=== PATIENT | female | born 1980 | race Caucasian/White ===

== ENCOUNTER 2018-10-04 09:01 | Inpatient (IN) ==
[2018-10-04] MEDS ORDERED: D5W 1,000 ML IV PRN (15:06)
[2018-10-04] MEDS ORDERED: DULCOLAX PR PRN (15:06)
[2018-10-04] MEDS ORDERED: DESYREL PO PRN (15:06)
[2018-10-04] MEDS ORDERED: PHENOBARBITAL IV PRN (15:06)
[2018-10-04] MEDS ORDERED: TYLENOL PO PRN (15:06)
[2018-10-04] MEDS ORDERED: MAALOX PLUS LIQUID PO PRN (15:06)
[2018-10-04] MEDS ORDERED: ZOFRAN IV PRN (15:06)
[2018-10-04] MEDS ORDERED: SENOKOT PO PRN (15:06)
[2018-10-04] MEDS ORDERED: MOTRIN PO PRN (15:06)
[2018-10-04] MEDS ORDERED: SEROQUEL PO PRN (15:06)
[2018-10-04] MEDS ORDERED: IMODIUM PO PRN ×2 (15:06)
[2018-10-04] MEDS ORDERED: ZOFRAN IM PRN (15:06)
[2018-10-04] MEDS ORDERED: TUBERSOL ID ONE (15:06)
[2018-10-04] MEDS ORDERED: ZOFRAN ODT PO PRN (15:06)
[2018-10-04 15:35] LABS: HEMATOCRIT 38.1 % (37.0-47.0); HEMOGLOBIN 12.9 g/dL (12.0-16.0); MCH 31.1 PG (27-31); MCHC 33.9 g/dL (33-37); MCV 91.8 FL (81-99); MPV 8.1 FL (7.4-10.4); RBC 4.15 XMIL (4.2-5.4); RDW 13.5 % (11.5-14.5); WBC 7.58 X1000 (4.8-10.8)
[2018-10-04 15:48] LABS: AGAP 12; ALBUMIN 3.8 g/dL (3.5-5.0); ALKALINE PHOSPHATASE 84 U/L (32-104); AMYLASE 73 U/L (20-200); BUN 14 mg/dL (8-22); CALCIUM 8.9 mg/dL (8.8-10.2); CHLORIDE 104 mmol/L (98-107); COSMO 277; CREATININE 0.6 mg/dL (0.5-0.9); ESTIMATED GFR > 60; GLUCOSE 86 mg/dL (70-104); GOT 21 U/L (10-30); GPT 21 U/L (10-36); LIPASE 37 U/L (13-60); POTASSIUM 4.3 mmol/L (3.5-5.1); SODIUM 139 mmol/L (136-145); TCO2 23 mmol/L (25-35); TOTAL PROTEIN 7.4 g/dL (6.3-8.3)
[2018-10-04] MEDS ORDERED: BENTYL PO PRN (18:24)
[2018-10-04] MEDS ORDERED: ATARAX PO PRN (18:24)
[2018-10-04] MEDS ORDERED: LIBRIUM PO PRN (18:24)
[2018-10-04] MEDS ORDERED: SINEMET 25/100 PO PRN (18:24)
[2018-10-04] MEDS: NICODERM PATCH TD PRN (18:36)
[2018-10-04] MEDS: NICOTINE GUM BUCCAL PRN (18:36)
[2018-10-04] MEDS: LIBRIUM PO SCH (18:36)
[2018-10-04 21:17] LABS: URINE SOURCE CLEAN CATCH
[2018-10-04 21:20] LABS: BILIRUBIN URINE NEGATIVE (NEGATIVE); BLOOD URINE NEGATIVE (NEGATIVE); CLARITY SL. CLOUDY (CLEAR); COLOR YELLOW; GLUCOSE URINE NEGATIVE (NEGATIVE); KETONE URINE NEGATIVE (NEGATIVE); LEUKOCYTES URINE TRACE (NEGATIVE); NITRITE URINE NEGATIVE (NEGATIVE); PROTEIN URINE NEGATIVE (NEGATIVE); UR AMPHETAMINES QUAL PRESUMPTIVE POSITIVE (NONE DETECT); UR BARBITUATES QUAL NONE DETECTED (NONE DETECT); UR BENZODIAZEPIN QUAL PRESUMPTIVE POSITIVE (NONE DETECT); UR COCAINE QUAL NONE DETECTED (NONE DETECT); UR METHADONE QUAL NONE DETECTED (NONE DETECT); UROBILINOGEN URINE NORMAL
[2018-10-04 21:21] LABS: UR CANNABINOIDS QUAL NONE DETECTED (NONE DETECT); UR METHAMPHETAMINE QUAL PRESUMPTIVE POSITIVE (NONE DETECT); UR OPIATES QUAL NONE DETECTED (NONE DETECT); UR OXYCODONE QUAL NONE DETECTED (NONE DETECT); UR PCP QUAL NONE DETECTED (NONE DETECT); UR PROPOXYPHENE QUAL NONE DETECTED (NONE DETECT); UR TCA QUAL NONE DETECTED (NONE DETECT)
[2018-10-04 21:38] LABS: URINE BACTERIA 1+ /HFP; URINE CAST NONE SEEN /LPF; URINE CRYSTAL NONE SEEN /HPF; URINE EPITHELIAL CELLS >10 /HPF (<10); URINE WBC <10 /HPF (<10); URINE YEAST NONE SEEN /HPF
[2018-10-05] MEDS: LIBRIUM PO SCH ×3 (03:43→12:40)
[2018-10-05] MEDS: PROTONIX PO SCH (07:21)
[2018-10-05] MEDS: FOLIC ACID PO SCH (12:09)
[2018-10-05] MEDS: THERA M PLUS PO SCH (12:10)
[2018-10-05] MEDS: VITAMIN B-1 PO SCH (12:10)
[2018-10-05] MEDS ORDERED: LIBRIUM PO PRN (13:50)
[2018-10-05] MEDS: NICODERM PATCH TD PRN (21:52)
[2018-10-05] MEDS: LIBRIUM PO PRN (21:55)
--- NOTE | 2018-10-06 02:17 | PROGRESS NOTE ---
DATE: 10/05/2018 SUBJECTIVE: Patient overall notes that she is feeling better. Withdrawal symptoms are improving. Denies any chest pain, palpitations. Denies any GI or issues currently. PHYSICAL EXAMINATION: Vital Signs: Reviewed and stable. She is afebrile, heart rate is 80, BP is elevated at 173/93. General: She is awake, alert. She is oriented. HEENT: Normocephalic. Neck: Supple. CARDIOVASCULAR: Regular rate. Chest: Clear and nonlabored. Abdomen: Soft, nondistended, nontender. Extremities: Moves all extremities. Neurologic: No focal changes. ASSESSMENT: 1. Hypertension. 2. Nausea and vomiting. 3. Abdominal pain. 4. Myalgias. 5. Paresthesias. 6. Paroxysmal sweating. 7. Opiate abuse, withdrawal and continued stabilization. PLAN: Overall, patient has improved. We will wean Librium, continue counseling. Further orders as needed. cc: Timbo Diamond MD
[2018-10-06] MEDS: ROBAXIN PO PRN ×2 (03:25→19:44)
[2018-10-06] MEDS: PROTONIX PO SCH (06:16)
[2018-10-06] MEDS: VITAMIN B-1 PO SCH (09:50)
[2018-10-06] MEDS: THERA M PLUS PO SCH (09:50)
[2018-10-06] MEDS: FOLIC ACID PO SCH (09:51)
[2018-10-06] MEDS ORDERED: CYANOCOBALAMIN SUBQ ONE (15:15)
[2018-10-06] MEDS: LIBRIUM PO PRN (18:31)
[2018-10-06] MEDS: NICOTINE GUM BUCCAL PRN (18:48)
--- NOTE | 2018-10-06 23:53 | PROGRESS NOTE ---
DATE: 10/06/2018 SUBJECTIVE: Patient notes that she is feeling a lot better. Denies any palpitation. Denies any fevers or chills. PHYSICAL EXAMINATION: Vital Signs: Reviewed and stable. Patient is awake, alert, oriented. She is currently in no respiratory distress. HEENT: Normocephalic. Neck: Supple. Cardiovascular: Regular rate. Chest: Clear. Abdomen: Soft, nondistended. Extremities: Moves all extremities. ASSESSMENT: 1. Nausea and vomiting. 2. Abdominal pain. 3. Myalgias. 4. Paresthesias. 5. Paroxysmal sweating. 6. Polysubstance use and abuse. PLAN: We will continue patient in the hospital. We will continue to follow. Hopefully she can be discharged home tomorrow if further inpatient bed is available. cc: Timbo Diamond MD
[2018-10-07] MEDS: LIBRIUM PO PRN ×2 (05:57→12:57)
[2018-10-07] MEDS: PROTONIX PO SCH (06:12)
[2018-10-07] MEDS: FOLIC ACID PO SCH (08:41)
[2018-10-07] MEDS: VITAMIN B-1 PO SCH (08:41)
[2018-10-07] MEDS: THERA M PLUS PO SCH (08:41)
[2018-10-07] MEDS: NICODERM PATCH TD PRN (09:22)
[2018-10-07] MEDS ORDERED: LIBRIUM PO PRN (14:42)
[2018-10-07] MEDS: ROBAXIN PO PRN (17:53)
--- NOTE | 2018-10-07 19:21 | PROGRESS NOTE ---
DATE: 10/07/2018 SUBJECTIVE: Patient has no new complaints. States overall she is feeling fine. Notes that her withdrawal symptoms have improved. OBJECTIVE: Vital Signs: Reviewed. Blood pressure is stable, heart rate 80s. She is afebrile. General: She is awake, alert. She is in no distress. HEENT: Normocephalic. Neck: Supple. Cardiovascular: Regular rate. Chest: Clear. Abdomen: Soft. Extremities: Moves all extremities. ASSESSMENT: 1. Nausea and vomiting. 2. Abdominal pain. 3. Myalgias. 4. Paresthesias. 5. Paroxysmal sweating. 6. Polysubstance use and abuse. PLAN: Will continue the patient in the hospital. She does have a known hepatitis C. We will attempt to contact GI to set up outpatient treatment. Hopefully, she can be discharged to further rehab in the next few days. cc: Timbo Diamond MD
[2018-10-07 19:34] VITALS: BP 119/79
[2018-10-08] MEDS: ROBAXIN PO PRN (00:20)
[2018-10-08] MEDS: NICOTINE GUM BUCCAL PRN (05:06)
[2018-10-08] MEDS: NICODERM PATCH TD PRN (05:06)
== END 2018-10-08 05:27 | disposition other institution (70) | DRG 897 ==
LOC: P.DIRADM 13:22 → P.MEDSURG 13:40
PROVIDERS: ADMIT Family Medicine; ATTEND Family Medicine
CPT/HCPCS: 80053; 80104; 80301; 80305; 80307; 80320; 81001; 82055; 82150; 83690; 84703; 85027; 86580; A9270; G0431; G0434; G0477; G0480; G6040; J3420; S4995